=== PATIENT | male | born 1950 | race Caucasian/White ===

== ENCOUNTER 2018-12-10 11:06 | Emergency (ER) | payer BC ==
[2018-12-10 12:08] VITALS: BP 133/80; PULSE 73; TEMP 97.9; BMI 29.0
--- NOTE | 2018-12-10 12:10 | PDOC ---
History of Present Illness - General Chief Complaint: Urinary Problem Stated Complaint: URINARY RETENTION Time Seen by Provider: 12/10/18 11:08 History Source: Patient, Spouse Exam Limitations: No Limitations - History of Present Illness Initial Comments: 12/10/18 12:05 CHIEF COMPLAINT: Urinary retention for a couple of days HISTORY OF PRESENT ILLNESS: 68-year-old man with a history of BPH, had a right hip replacement on November 29. He was discharged but then had difficulty urinating and went back to the hospital on December 01 for urinary retention. A catheter was placed and he was sent home with the catheter. The catheter was removed 3 days ago by his urologist. He continues on Flomax 2 tablets daily. Since removal, he has had a decreased urinary stream, and today he is having bladder distention and discomfort with inability to pass urine other than minor dribbling. He denies hematuria, fever, chills, or back pain. Since the surgery, he has also noted increased swelling of his right leg. The right leg is much more swollen than the left. There is no chest pain or shortness of breath. There is no history of prior DVT. He is status post both a right hip replacement on November 29 as well as a remote right knee replacement. He states his right leg has never been as good as his left. REVIEW OF SYSTEMS: GENERAL/CONSTITUTIONAL: No fever or chills. No weakness. No weight change. HEAD, EYES, EARS, NOSE AND THROAT: No change in vision. No ear pain or discharge. No sore throat. CARDIOVASCULAR: No chest pain or shortness of breath. RESPIRATORY: No cough, wheezing, or hemoptysis. GASTROINTESTINAL: No nausea, vomiting, diarrhea or constipation. No rectal bleeding. GENITOURINARY: No dysuria. Positive frequency. Positive hesitancy. Positive urinary retention. No hematuria. MUSCULOSKELETAL: Positive right leg and ankle swelling much greater than the left. Status post right hip and right knee replacements. SKIN AND BREASTS: No rash or easy bruising. NEUROLOGIC: No headache, vertigo, loss of consciousness, or loss of sensation. PSYCHIATRIC: No depression or anxiety. ENDOCRINE: No increased thirst. No abnormal weight change. HEMATOLOGIC/LYMPHATIC: No anemia, easy bleeding, or history of blood clots. ALLERGIC/IMMUNOLOGIC: No hives or skin allergy. No latex allergy. Past History - Past Medical History Allergies/Adverse Reactions: Allergies Allergy/AdvReac Type Severity Reaction Status Date / Time Penicillins Allergy Mild Verified 12/10/18 11:56 Home Medications: Ambulatory Orders Aspirin [Aspirin EC] 81 mg PO DAILY 12/10/18 Atorvastatin Ca [Lipitor] 40 mg PO HS 12/10/18 Bupropion HCl [Wellbutrin Xl -] 300 mg PO HS 12/10/18 Docusate Sodium [Colace] 100 mg PO BID 12/10/18 Ranolazine [Ranexa] 500 mg PO BID 12/10/18 Tadalafil [Cialis] 5 mg PO ASDIR 12/10/18 Tamsulosin HCl [Flomax] 0.8 mg PO HS 12/10/18 Tramadol HCl [Ultram] 50 mg PO BID PRN 12/10/18 Cardiac Disorders: Yes (Angina on medication, negative cath, no stents) Disorders: Yes (BPH) Hypercholesterolemia: Yes Other medical history: Osteoarthritis - Surgical History Orthopedic Surgery: Yes (Right hip replacement, right knee replacement) - Psycho Social/Smoking Cessation Hx Smoking History: Never smoked Have you smoked in the past 12 months: No Number of Cigarettes Smoked Daily: 0 Cigars Per Day: 0 'Breaking Loose' booklet given: 06/10/13 Hx Alcohol Use: No Substance Use Type: None, Alcohol Hx Substance Use Treatment: No *Physical Exam - Physical Exam Comments: 12/10/18 12:10 GENERAL: The patient is awake, alert, and fully oriented, in no acute distress. He states he is feeling much better now that the bladder catheter has been placed. The suprapubic discomfort has resolved. HEAD: Normal with no signs of trauma. EYES: Pupils equal, round and reactive to light, extraocular movements intact, sclera anicteric, conjunctiva clear. ENT: Ears normal, nares patent, oropharynx clear without exudates. Moist mucous membranes. NECK: Normal range of motion, supple without lymphadenopathy, JVD, or masses. LUNGS: Breath sounds equal, clear to auscultation bilaterally. No wheezes, and no crackles. HEART: Regular rate and rhythm, normal S1 and S2 without murmur, rub or gallop. ABDOMEN: Soft, nontender, normoactive bowel sounds. No guarding, no rebound. No masses. EXTREMITIES: The right leg has pitting edema up to the knee. The left leg has trace pitting ankle edema much less than the right. No cords. No erythema. No tenderness. NEUROLOGICAL: Cranial nerves II through XII grossly intact. Normal speech, normal gait. PSYCH: Normal mood, normal affect. SKIN: Warm, Dry, normal turgor, no rashes or lesions noted. ED Treatment Course - RADIOLOGY Radiology Studies Ordered: Category Date Time Status DUPLEX VASCUL US-1 LEG [US] Stat Ultrasound 12/10/18 12:04 Ordered Medical Decision Making - Medical Decision Making 12/10/18 13:07 68-year-old man with history of BPH and previous urinary retention. His urinary retention was worse after hip surgery on November 29 requiring an indwelling catheter as an outpatient. The catheter was removed a few days ago and he is now having recurrent urinary retention. No fever chills or other infectious symptoms. On examination he presented with discomfort and suprapubic fullness. A catheter was placed with 900 cc out initially. Patient had immediate relief. Repeat examination was benign abdomen, soft and nontender. Urinalysis was reviewed, no signs of infection, normal. Impression: Recurrent urinary retention with a history of BPH Plan: Patient to be discharged with Johnson and leg bag. He has a urologist at [facility], Dr. Anguiano, he will call on Wednesday and schedule a follow-up appointment. In the meantime, he will continue Flomax and Cialis for urinary retention. No indication for antibiotics at this time. Discharge - Discharge Information Problems reviewed: Yes Clinical Impression/Diagnosis: Acute urinary retention Condition: Improved Disposition: HOME - Admission No - Follow up/Referral Referrals: Ramin Key [Primary Care Provider] - - Patient Discharge Instructions Patient Printed Discharge Instructions: DI for Urinary Retention in Men Additional Instructions: Today you were evaluated for urinary retention from prostate enlargement. A Johnson catheter with a leg bag was placed with 900 cc of urine output. The urinalysis testing shows no signs of infection. You are advised to continue Flomax and Cialis. Follow-up with Dr. Anguiano, your urologist, by calling her on Wednesday to schedule a follow-up appointment. Empty the leg bag as needed. Return to the emergency department for any severe or progressive symptoms, including fever, bloody, or cloudy urine. - Post Discharge Activity
== END 2018-12-10 13:15 | disposition home or self-care (01) ==
LOC: FER 11:06
DX: R33.9 Retention of urine, unspecified (principal); N40.0 Benign prostatic hyperplasia without lower urinary tract symptoms; E78.00 Pure hypercholesterolemia, unspecified; M19.90 Unspecified osteoarthritis, unspecified site; I51.9 Heart disease, unspecified; Z96.641 Presence of right artificial hip joint; Z96.651 Presence of right artificial knee joint
CPT/HCPCS: 81003; 87086; 93971-TC; 99283-25